=== PATIENT | female | born 1985 | race Caucasian/White ===

== ENCOUNTER 2017-10-28 03:26 | Inpatient (IN) | payer OTHER ==
[~2017-10-28] VITALS: Ht 153 cm; Wt 66.7 kg
[2017-10-28] MEDS ORDERED: RINGERS SOLUTION,LACTATED 1,000 ML IV SCH ×2 (04:32→05:07)
[2017-10-28] MEDS ORDERED: RINGERS SOLUTION,LACTATED 1,000 ML IV ONE (04:48)
[2017-10-28] MEDS ORDERED: CITRIC ACID/SODIUM CITRATE 30 ML SOLUTION UDCUP PO ONE (05:00)
[2017-10-28] MEDS ORDERED: METOCLOPRAMIDE HCL 5 MG/ML 2 ML VIAL IVP ONE (05:00)
[2017-10-28] MEDS ORDERED: RINGERS SOLUTION,LACTATED 1,000 ML IV PRN (05:07)
[2017-10-28] MEDS ORDERED: FentaNYL CITRATE-PF 100 MCG/2 ML VIAL IVP PRN ×5 (05:15→09:00)
[2017-10-28] MEDS ORDERED: LIDOCAINE HCL/PF 1% 30 ML VIAL INJ PRN (05:15)
[2017-10-28 05:22] VITALS: BP 123/78
[2017-10-28] MEDS ORDERED: PREN1TAB89 PO (05:42)
[2017-10-28 05:45] LABS: BASOPHILS # (AUTO) 0.07 K/uL (0.00-0.20); BASOPHILS % (AUTO) 0.7 % (0.0-2.0); EOSINOPHILS # (AUTO) 0.05 K/uL (0.00-0.70); EOSINOPHILS % (AUTO) 0.43 % (1.0-6.0); HEMATOCRIT 41.5 % (36-46); HEMOGLOBIN 13.9 g/dL (12.0-16.0); LYMPHOCYTES # (AUTO) 2.4 K/uL (1.0-4.8); LYMPHOCYTES % (AUTO) 22.2 % (22.0-44.0); MEAN CORPUSCULAR HEMOGLOBIN 31.9 pg (26.0-34.0); MEAN CORPUSCULAR HGB CONC 33.5 G/dL (31.0-37.0); MEAN CORPUSCULAR VOLUME 95 fL (80-100); MONOCYTES # (AUTO) 0.7 K/uL (0.1-1.0); MONOCYTES % (AUTO) 6.6 % (2.0-9.0); NEUTROPHILS # (AUTO) 7.5 K/uL (1.8-7.7); NEUTROPHILS % (AUTO) 70.1 % (40.0-70.0); PLATELET COUNT (AUTO)-OB 271 K/uL (150-450); RED BLOOD CELL COUNT(AUTO) 4.35 MIL/uL (4.00-5.20); RED CELL DISTRIBUTION WIDTH 13.9 % (11.5-14.5)
[2017-10-28] MEDS ORDERED: CeFAZolin 2 GM/DEXTROSE 50 ML IV ONE (07:29)
[2017-10-28] MEDS ORDERED: FentaNYL CITRATE-PF 100 MCG/2 ML VIAL ONE (07:29)
[2017-10-28] MEDS ORDERED: MORPHINE SULFATE/PF 0.5 MG/ML 10 ML AMP ONE (07:29)
[2017-10-28] MEDS ORDERED: NALOXONE HCL 0.4 MG/ML VIAL IVP PRN (09:00)
[2017-10-28] MEDS ORDERED: NALBUPHINE HCL 10 MG/ML VIAL IVP PRN ×3 (09:00)
[2017-10-28] MEDS ORDERED: PROMETHAZINE HCL 12.5 MG in SODIUM CHLORIDE 0.9% 50 ML IV PRN (09:00)
[2017-10-28] MEDS ORDERED: MEPERIDINE-PF 25 MG/ML SYRINGE IVP PRN (09:00)
[2017-10-28] MEDS ORDERED: ONDANSETRON HCL 4 MG/2 ML VIAL IVP PRN ×2 (09:00)
[2017-10-28] MEDS ORDERED: DiphenhydrAMINE HCL 50 MG/ML VIAL IVP PRN ×2 (09:00)
[2017-10-28] MEDS ORDERED: DEXAMETHASONE SOD PHOS 4 MG/ML VIAL IVP PRN (09:00)
[2017-10-28] MEDS ORDERED: ACETAMINOPHEN/CODEINE 300-30 MG TABLET PO PRN ×2 (09:30)
[2017-10-28] MEDS ORDERED: LANOLIN 7 GM OINTMENT TP PRN (09:30)
[2017-10-28] MEDS ORDERED: ACETAMINOPHEN 1000 MG/ISO-OSM 100 ML IV ONE (09:31)
[2017-10-28] MEDS: DEXTROSE 5%-0.45% SODIUM CHL 1,000 ML IV SCH ×3 (12:15→21:48)
[2017-10-28] MEDS ORDERED: KETOROLAC TROMETHAMINE 30 MG/ML VIAL IVP SCH (15:00)
[2017-10-28] MEDS: ACETAMINOPHEN 1000 MG/ISO-OSM 100 ML IV SCH (17:27)
[2017-10-28] MEDS ORDERED: OXYGEN THERAPY IH SCH ×4 (20:00)
[2017-10-29] MEDS ORDERED: PHENYLEPHRINE HCL 10 MG/ML VIAL IVP ONE (00:24)
[2017-10-29] MEDS ORDERED: KETOROLAC TROMETHAMINE 60 MG/2 ML VIAL IM ONE (00:24)
[2017-10-29] MEDS ORDERED: DEXAMETHASONE SOD PHOS 4 MG/ML VIAL IVP ONE (00:24)
[2017-10-29] MEDS ORDERED: ONDANSETRON HCL 4 MG/2 ML VIAL IVP ONE (00:24)
[2017-10-29] MEDS ORDERED: 0.9% SODIUM CHLORIDE 10 ML VIAL IVP ONE (00:24)
[2017-10-29] MEDS ORDERED: EPHEDrine SULFATE 50 MG/ML VIAL IM ONE (00:24)
[2017-10-29] MEDS ORDERED: OXYTOCIN 10 UNITS/ML VIAL IM ONE (00:24)
[2017-10-29] MEDS: DEXTROSE 5%-0.45% SODIUM CHL 1,000 ML IV SCH (01:43)
[2017-10-29] MEDS: ACETAMINOPHEN 1000 MG/ISO-OSM 100 ML IV SCH (01:43)
[2017-10-29] MEDS: IBUPROFEN 800 MG TABLET PO SCH ×4 (03:40→22:45)
[2017-10-29] MEDS: MAGNESIUM HYDROXIDE SUSPENSION 30 ML UDCUP PO SCH ×2 (08:41→22:45)
[2017-10-30] MEDS: IBUPROFEN 800 MG TABLET PO SCH ×4 (06:09→23:46)
[2017-10-30] MEDS: MAGNESIUM HYDROXIDE SUSPENSION 30 ML UDCUP PO SCH ×3 (09:00→20:54)
[2017-10-30] MEDS ORDERED: FentaNYL CITRATE-PF 100 MCG/2 ML VIAL ONE (19:55)
[2017-10-31] MEDS: IBUPROFEN 800 MG TABLET PO SCH (06:11)
[2017-10-31] MEDS: MAGNESIUM HYDROXIDE SUSPENSION 30 ML UDCUP PO SCH (07:55)
[2017-10-31] MEDS ORDERED: IBUP-2070 PO (11:28)
[2017-10-31] MEDS ORDERED: PERCT PO ×2 (11:38→11:39)
== END 2017-10-31 11:30 | disposition home or self-care (01) | DRG 766 ==
LOC: 4S 03:26 → OBSVTOIN 03:26 → 4S 06:53
PROVIDERS: ADMIT Obstetrics & Gynecology; ATTEND Obstetrics & Gynecology
PROC: 10D00Z1 Extraction of Products of Conception, Low, Open Approach (ICD-10-PCS; principal; 2017-10-28)
DX: O34.211 Maternal care for low transverse scar from previous cesarean delivery (principal); Z37.0 Single live birth; Z3A.39 39 weeks gestation of pregnancy
CPT/HCPCS: 86850; 86900; 86901; 87081; J0131; J0690; J1100; J1885; J2274; J2370; J2405; J2590; J2765; J3010; J3490; J7120